=== PATIENT | male | born 1940 | race Caucasian/White ===

== ENCOUNTER 2021-06-09 09:58 | Emergency (ER) | payer MEDICARE, BC ==
--- NOTE | 2021-06-09 11:03 | EDM.PDOC ---
ED HPI GENERAL MEDICAL PROBLEM - General Chief Complaint: Respiratory Problem Stated Complaint: SOB/LOW OXYGEN LEVEL Time Seen by Provider: 06/09/21 11:02 Source of Information: Reports: Patient, Family () History Limitations: Reports: No Limitations - History of Present Illness INITIAL COMMENTS - FREE TEXT/NARRATIVE: 80-year-old male presents to the ED in the accompaniment of his due to increasing dyspnea and productive cough over the last 3 to 4 days. Very minimal nasal congestion. States mild sore throat. He is coughing up some sputum but he swallows it and hasn't had a look at it. He denies ever having COVID-19 and is not vaccinated and does not wish to be vaccinated. He has known COPD and is on oxygen at 2 L/min by nasal cannula at bedtime. This morning his O2 sats were much lower than normal in the low 80s and his increase his oxygen to 3 L/min. He was having difficulty getting dressed and seemed to be generalized increased weakness. He thinks he had some fever and chills a couple days ago. thought he was febrile this morning. Has not had any Tylenol or Motrin. He is prone to pneumonia. Denies any pleuritic chest pain. Appetite is normal. O2 sats in the ED on 2 L/min were 93 to 95%. Onset: Gradual Onset Date: 06/06/21 Duration: Day(s):, Getting Worse Location: Reports: Chest (Increased dyspnea with productive cough with hypoxemia this morning recorded at home.) Quality: Reports: Other Severity: Moderate (Shortness of breath with productive cough for 3 days.) Improves with: Reports: None Worsens with: Reports: Movement Context: Reports: Other. Denies: Activity, Exercise, Lifting, Sick Contact, Trauma Associated Symptoms: Reports: Cough (Chronic COPD.), cough w sputum, Fever/Chills, Malaise (Seem to be weak this morning according to . Difficulty), Shortness of Breath, Weakness (Chronically on exertion.). Denies: Confusion ( Generalized weakness particular noted this morning.), Chest Pain, Diaphoresis (He has not had a look at sputum to get a color.), Headaches (Will fever chills the last few days.), Loss of Appetite, Nausea/Vomiting ( getting up out of bed and getting dressed.), Rash, Seizure, Syncope Treatments [employer]: Reports: Other (see below) (With recent changes to any of his medications.) - Related Data Allergies Allergy/AdvReac Type Severity Reaction Status Date / Time No Known Allergies Allergy Verified 06/09/21 10:08 Home Meds: Home Meds Finasteride 5 mg PO DAILY 06/09/21 [History] Fluticasone/Vilanterol [Breo Ellipta 200-25 MCG Inhalation Kit] 1 puff INH BEDTIME 06/09/21 [History] Incruse 1 puff INH DAILY 06/09/21 [History] Montelukast [Singulair] 5 mg PO ASDIRECTED 06/09/21 [History] Travoprost 2.5 ml OP ASDIRECTED 06/09/21 [History] levoFLOXacin [Levaquin] 500 mg PO DAILY #9 tab 06/09/21 [Rx] Past Medical History HEENT History: Reports: Cataract, Hard of Hearing, Impaired Vision Cardiovascular History: Reports: None Respiratory History: Reports: COPD, Pneumonia, Recurrent Gastrointestinal History: Reports: None Genitourinary History: Reports: Prostate Disorder Musculoskeletal History: Reports: None Neurological History: Reports: Migraines Psychiatric History: Reports: None Endocrine/Metabolic History: Reports: None Hematologic History: Reports: None Immunologic History: Reports: None Oncologic (Cancer) History: Reports: Other (See Below) Other Oncologic History: skin Dermatologic History: Reports: None - Infectious Disease History Infectious Disease History: Reports: Chicken Pox - Past Surgical History HEENT Surgical History: Reports: Cataract Surgery, Oral Surgery Social & Family History - Family History Family Medical History: No Pertinent Family History - Tobacco Use Tobacco Use Status *Q: Former Tobacco User Years of Tobacco use: 57 Packs/Tins Daily: 1 Used Tobacco, but Quit: Yes Month/Year Tobacco Last Used: - Caffeine Use Caffeine Use: Reports: Tea - Recreational Drug Use Recreational Drug Use: No - Living Situation & Occupation Living situation: Reports: Occupation: Retired ED ROS GENERAL - Review of Systems Review Of Systems: See Below Constitutional: Reports: Fever, Chills, Malaise, Weakness, Fatigue. Denies: Diaphoresis, Decreased Appetite, Weight Loss HEENT: Reports: Glasses (Reading only.) Respiratory: Reports: Shortness of Breath, Wheezing, Cough, Sputum. Denies: Pleuritic Chest Pain (Occasional wheezing.), Hemoptysis (Sputum production the last 3 days but he hasn't had a look at the color.) Cardiovascular: Reports: Dyspnea on Exertion. Denies: Chest Pain, Blood Pressure Problem, Claudication, Edema, Lightheadedness, Orthopnea, Palpitations Endocrine: Reports: Fatigue (Chronically) GI/Abdominal: Reports: Constipation (Rare problems with constipation.) : Reports: Other (Has benign prostatic hypertrophy. Rarely gets up at night to void.) Musculoskeletal: Reports: Neck Pain, Back Pain Skin: Reports: No Symptoms, Other (History of skin cancer with removal of tumors anterior chest.) Neurological: Reports: Difficulty Walking (Weak this morning having trouble getting up out of bed and walking and getting dressed.), Weakness. Denies: Confusion, Dizziness, Headache, Numbness, Syncope, Tingling, Tremors, Trouble Speaking, Change in Speech, Gait Disturbance Psychiatric: Reports: No Symptoms Hematologic/Lymphatic: Reports: No Symptoms Immunologic: Reports: No Symptoms ED EXAM, GENERAL - Physical Exam Exam: See Below Exam Limited By: No Limitations General Appearance: Alert, WD/WN, No Apparent Distress, Other (He is not warm to palpation. He has a alex complexion. Temperature is 36.6 degrees. Heart rate was 96 and sinus respiratory was 20 with O2 sats of 95% on 2 L/min by nasal cannula. BP 114/81.) Eye Exam: Bilateral Eye: Normal Inspection (No blepharal pallor or scleral icterus.), PERRL Throat/Mouth: Perioral Cyanosis, Other (Uvula is a little thickened and edematous I believe from coughing. Very minimal pharyngeal erythema with no exudate.) Head: Atraumatic Neck: Normal Inspection, Limited Range of Motion. No: Carotid Bruit, Lymph adenopathy (L) (Hepatus on lateral rotation but he does have full range of motion.), Lymphadenopathy (R) Respiratory/Chest: Rales (Rhonchi right lung base. Fine crackles right lung base as well. He has no history documented of pulmonary fibrosis.), Rhonchi Cardiovascular: Regular Rate, Rhythm, No Edema, No Gallop, No Murmur, No Rub Peripheral Pulses: 2+: Carotid (L), Carotid (R), Posterior Tibial (L), Posterior Tibial (R), Dorsalis Pedis (L), Dorsalis Pedis (R) GI/Abdominal: Normal Bowel Sounds, Soft, Non-Tender, No Organomegaly, No Mass, Pelvis Stable, Other (No surgical scars.) Back Exam: Normal Inspection, Full Range of Motion. No: CVA Tenderness (L), CVA Tenderness (R) Extremities: Normal Inspection, Normal Range of Motion, Non-Tender, No Pedal Edema Neurological: Alert, Oriented, CN II-XII Intact, Normal Cognition, Normal Gait Psychiatric: Normal Affect, Normal Mood Skin Exam: Warm, Dry, Intact, Normal Color, Other (He has 2 surgical incisions 1 below his right clavicle and one left mid chest apparently with resection of skin cancers. He doesn't know if this was malignant melanoma or not.) Course - Vital Signs Last Recorded V/S: Last Vital Signs Temp 36.6 C 06/09/21 10:16 Pulse 96 06/09/21 10:16 Resp 20 06/09/21 10:16 BP 114/81 06/09/21 10:16 Pulse Ox 95 06/09/21 10:16 - Orders/Labs/Meds Orders: Active Orders 24 hr Category Date Time Status BLOOD CULTURE [MREF] Stat Lab 06/09/21 11:30 Received BLOOD CULTURE [MREF] Stat Lab 06/09/21 11:40 Received Blood Culture x2 Reflex Set [OM.PC] Stat Oth 06/09/21 11:11 Ordered Peripheral IV Insertion Adult [OM.PC] Stat Oth 06/09/21 11:17 Ordered Labs: Laboratory Tests 06/09/21 06/09/21 06/09/21 Range/Units 11:28 11:30 11:30 WBC 13.27 H (4.23-9.07) K/mm3 RBC 5.33 (4.63-6.08) M/mm3 Hgb 15.8 (13.7-17.5) gm/dl Hct 47.0 (40.1-51.0) % MCV 88.2 (79.0-92.2) fl MCH 29.6 (25.7-32.2) pg MCHC 33.6 (32.2-35.5) g/dl RDW Std Deviation 46.9 H (35.1-43.9) fL Plt Count 219 (163-337) K/mm3 MPV 9.7 (9.4-12.3) fl Neutrophils % (Manual) 72 H (40-60) % Band Neutrophils % 10 (0-10) % Lymphocytes % (Manual) 10 L (20-40) % Atypical Lymphs % 0 % Monocytes % (Manual) 8 (2-10) % Eosinophils % (Manual) 0 L (0.8-7.0) % Basophils % (Manual) 0 L (0.2-1.2) Platelet Estimate Adequate Plt Morphology Comment Normal RBC Morph Comment Normal PT 10.3 (9.7-12.0) SECONDS INR 0.96 APTT 29.3 (21.7-31.4) SECONDS Sodium (136-145) mEq/L Potassium (3.5-5.1) mEq/L Chloride (98-107) mEq/L Carbon Dioxide (21-32) mEq/L Anion Gap (5-15) BUN (7-18) mg/dL Creatinine (0.7-1.3) mg/dL Est Cr Clr Drug Dosing mL/min Estimated GFR (MDRD) (>60) mL/min BUN/Creatinine Ratio (14-18) Glucose (70-99) mg/dL Calcium (8.5-10.1) mg/dL Magnesium (1.8-2.4) mg/dL Total Bilirubin (0.2-1.0) mg/dL AST (15-37) U/L ALT (16-63) U/L Alkaline Phosphatase (46-116) U/L CK-MB (CK-2) (0-3.6) ng/ml Troponin I (0.00-0.056) ng/mL C-Reactive Protein (<1.0) mg/dL NT-Pro-B Natriuret Pep (0-450) pg/mL Total Protein (6.4-8.2) g/dl Albumin (3.4-5.0) g/dl Globulin gm/dL Albumin/Globulin Ratio (1-2) SARS-CoV-2 RNA (RAMANA) Negative (NEGATIVE) 06/09/21 06/09/21 Range/Units 11:30 11:30 WBC (4.23-9.07) K/mm3 RBC (4.63-6.08) M/mm3 Hgb (13.7-17.5) gm/dl Hct (40.1-51.0) % MCV (79.0-92.2) fl MCH (25.7-32.2) pg MCHC (32.2-35.5) g/dl RDW Std Deviation (35.1-43.9) fL Plt Count (163-337) K/mm3 MPV (9.4-12.3) fl Neutrophils % (Manual) (40-60) % Band Neutrophils % (0-10) % Lymphocytes % (Manual) (20-40) % Atypical Lymphs % % Monocytes % (Manual) (2-10) % Eosinophils % (Manual) (0.8-7.0) % Basophils % (Manual) (0.2-1.2) Platelet Estimate Plt Morphology Comment RBC Morph Comment PT (9.7-12.0) SECONDS INR APTT (21.7-31.4) SECONDS Sodium 140 (136-145) mEq/L Potassium 4.3 (3.5-5.1) mEq/L Chloride 106 (98-107) mEq/L Carbon Dioxide 25 (21-32) mEq/L Anion Gap 13.3 (5-15) BUN 12 (7-18) mg/dL Creatinine 0.9 (0.7-1.3) mg/dL Est Cr Clr Drug Dosing 72.05 mL/min Estimated GFR (MDRD) > 60 (>60) mL/min BUN/Creatinine Ratio 13.3 L (14-18) Glucose 107 H (70-99) mg/dL Calcium 9.2 (8.5-10.1) mg/dL Magnesium 2.1 (1.8-2.4) mg/dL Total Bilirubin 0.5 (0.2-1.0) mg/dL AST 13 L (15-37) U/L ALT 13 L (16-63) U/L Alkaline Phosphatase 100 (46-116) U/L CK-MB (CK-2) < 0.5 (0-3.6) ng/ml Troponin I < 0.017 (0.00-0.056) ng/mL C-Reactive Protein 18.7 H* (<1.0) mg/dL NT-Pro-B Natriuret Pep 289 (0-450) pg/mL Total Protein 6.9 (6.4-8.2) g/dl Albumin 3.0 L (3.4-5.0) g/dl Globulin 3.9 gm/dL Albumin/Globulin Ratio 0.8 L (1-2) SARS-CoV-2 RNA (RAMANA) (NEGATIVE) Meds: Medications Discontinued Medications Generic Name Dose Route Start Last Admin Trade Name Jose PRN Reason Stop Dose Admin Acetaminophen 650 mg 06/09/21 12:09 06/09/21 13:05 Acetaminophen 325 Mg Tab PO 06/09/21 12:10 650 mg ONETIME ONE Administration Levofloxacin/Dextrose 750 mg/ 150 mls @ 100 mls/hr 06/09/21 12:10 06/09/21 13:06 Premix IV 06/09/21 13:39 100 mls/hr ONETIME ONE Administration Sodium Chloride 10 ml 06/09/21 11:17 06/09/21 11:43 Sodium Chloride 0.9% 10 Ml Syringe FLUSH 10 ml ASDIRECTED PRN Administration Keep Vein Open - Radiology Interpretation Free Text/Narrative:: 80-year-old male presents to the ED with a history of fever and chills a few days ago. Increased weakness this morning and hypoxia at home. He usually uses oxygen 2 L/min by nasal cannula at bedtime due to COPD. Usually doesn't need it during the day. His O2 sats are 93 to 95% in the ED on 2 L. He claims he has a productive cough but he hasn't had a look at the sputum. States he swallows it. Appetite has remained fair. Only other major medical problem is BPH. He denies any pleuritic chest pain. No known exposure to COVID-19 and he declines the vaccination. Plan work-up for pneumonia as examination reveals increased rhonchi and fine crackles right lung base. - Re-Assessments/Exams Free Text/Narrative Re-Assessment/Exam: 06/09/21 12:02 potable chest x-ray reveals heart size to be normal. There is mild tortuosity of the thoracic aorta. Slight parenchymal density is seen within the left lung base. Lungs otherwise are clear. Bony structures show nothing acute. Suspect early pneumonia left lower lobe. Plan patient will be started on Levaquin 750 mg IV. On reexamination he is febrile at this time as well. Will be given Tylenol 650 mg p.o. 06/09/21 13:06 White count is elevated at 13.27 with 72% neutrophils and 10% bands cells reported. Hemoglobin is 15.8 with hematocrit of 47.0. PT is 10.3 with an INR of 0.96 and a PTT of 29.3. Sodium is 140 with a potassium of 4.3. Chloride 106 with a bicarb of 25. Anion gap is 13.3. BUN is 12 with a creatinine of 0.9 GFR greater than 60. Glucose is 107. Calcium is 9.2. Magnesium is 2.1. Total bilirubin is 0.5 with an AST of 13 and an ALT of 13. Alkaline phosphatase normal at 100. CK-MB is less than 0.5. Troponin I is less than 0.017. C-reactive protein is elevated at 18.7. BNP is 289. Total protein is 6.9 with an albumin fraction of 3.0 COVID-19 screen is negative. I have strongly entertain the idea of admitting this patient to hospital although he feels he wants to try things at home first. He has a significant left shift with 10% bands cells and a markedly elevated CRP suggesting significant infection. We will give him Levaquin 750 mg IV in the ED and see how he does. 06/09/21 15:10: Patient has completed his IV infusion and feels well. He has no recurrence of fever thus far. He is feeling hungry. He therefore wants to try things at home. Discharged with Levaquin 500 mg tablets once daily for another 9 days every day at noon. Tylenol 650 mg every 6 hours. He will return to the emergency room if condition is not markedly improved in the next 36 to 48 hours. Follow-up with primary care physician in 10 days time or sooner. Departure - Departure Time of Disposition: 14:54 Disposition: Home, Self-Care 01 Condition: Fair Clinical Impression: Pneumonia Qualifiers: Pneumonia type: due to unspecified organism Laterality: left Lung location: lower lobe of lung Qualified Code(s): J18.9 - Pneumonia, unspecified organism COPD (chronic obstructive pulmonary disease) Qualifiers: COPD type: COPD with acute lower respiratory infection Qualified Code(s): J44.0 - Chronic obstructive pulmonary disease with (acute) lower respiratory infection - Discharge Information *PRESCRIPTION DRUG MONITORING PROGRAM REVIEWED*: Not Applicable *COPY OF PRESCRIPTION DRUG MONITORING REPORT IN PATIENT DINO: Not Applicable Prescriptions: levoFLOXacin [Levaquin] 500 mg PO DAILY #9 tab Instructions: Community-Acquired Pneumonia, Adult, [id number] Referrals: Weston Davalos MD [Primary Care Provider] - Forms: ED Department Discharge Additional Instructions: Evaluation in the emergency room today in regards to generalized weakness increased cough and a notable fever in the emergency department. History of not feeling well for the last 3 to 4 days with increased cough and increased need for oxygen this morning. You may well need to continue oxygen at 2 L/min throughout the day and night until feeling better in about 4 to 5 days. Lab tests do reveal an elevated white blood cell count indicating your body is fighting off an infection. Chest x-ray reveals an early pneumonia in the left lower lung although examination suggested more rhonchi and noises in the right lower lobe of your lung. First dose of antibiotic was therefore given in the emergency room Levaquin 750 mg. You will need to continue this in a tablet form 500 mg once daily with noon meal for the next 9 days to clear pneumonia up completely. Continue Tylenol 650 mg every 4-6 hours as needed for relief of fever. Diet as tolerated. Suggest follow-up with personal care physician within the next 2 days if not feeling markedly improved or return to the ED. Otherwise follow-up would be indicated in 10 days time. Sepsis Event Note (ED) - Evaluation Sepsis Screening Result: No Definite Risk - Focused Exam Vital Signs: Vital Signs Temp Pulse Resp BP Pulse Ox 06/09/21 10:16 36.6 C 96 20 114/81 95 - My Orders Last 24 Hours: My Active Orders 06/09/21 11:11 Blood Culture x2 Reflex Set [OM.PC] Stat 06/09/21 11:17 Peripheral IV Insertion Adult [OM.PC] Stat 06/09/21 11:30 BLOOD CULTURE [MREF] Stat 06/09/21 11:40 BLOOD CULTURE [MREF] Stat - Assessment/Plan Last 24 Hours: My Active Orders 06/09/21 11:11 Blood Culture x2 Reflex Set [OM.PC] Stat 06/09/21 11:17 Peripheral IV Insertion Adult [OM.PC] Stat 06/09/21 11:30 BLOOD CULTURE [MREF] Stat 06/09/21 11:40 BLOOD CULTURE [MREF] Stat
[2021-06-09] MEDS ORDERED: Sodium Chloride 0.9% 10 ML Syringe FLUSH PRN (11:17)
--- NOTE | 2021-06-09 11:51 | CR ---
Chest: Portable view of the chest was obtained. Comparison: Prior chest x-ray of 11/20/12. Heart size is normal. Mild tortuosity of the thoracic aorta is seen. Slight parenchymal density is seen within the left lung base. Lungs otherwise are clear. Bony structures show nothing acute. Impression: 1. Difficult to exclude small area of pneumonia within the left lung base. 2. No other acute abnormality is seen. Diagnostic code #3
[2021-06-09] MEDS ORDERED: Acetaminophen 325 MG Tab PO ONE (12:09)
[2021-06-09] MEDS ORDERED: Levofloxacin/Dextrose 5%-Water 750 MG in Premix Bag 1 BAG IV ONE (12:10)
== END 2021-06-09 15:14 | disposition home or self-care (01) ==
LOC: JD.ED 09:58
DX: J18.9 Pneumonia, unspecified organism (principal); J44.0 Chronic obstructive pulmonary disease with (acute) lower respiratory infection; I45.10 Unspecified right bundle-branch block; Z87.891 Personal history of nicotine dependence; Z79.899 Other long term (current) drug therapy; Z20.822 Contact with and (suspected) exposure to COVID-19; R06.02 Shortness of breath
CPT/HCPCS: 36415; 71045; 80053; 82553; 83735; 83880; 84484; 85007; 85027; 85610; 85730; 86140; 87040; 93005; 96365; 96366; 99285; A9270; J1956; U0002; 99284

== ENCOUNTER 2021-08-09 14:29 | Emergency (ER) | payer MEDICARE, BC ==
[2021-08-09] MEDS ORDERED: Sodium Chloride 0.9% 10 ML Syringe FLUSH PRN (15:18)
--- NOTE | 2021-08-09 15:57 | EDM.PDOC ---
ED HPI GENERAL MEDICAL PROBLEM - General Chief Complaint: Respiratory Problem Stated Complaint: POSS COVID Time Seen by Provider: 08/09/21 15:16 Source of Information: Reports: Patient, RN Notes Reviewed History Limitations: Reports: No Limitations - History of Present Illness INITIAL COMMENTS - FREE TEXT/NARRATIVE: Patient is a 81-year-old male presenting to the emergency department with complaints of cough, shortness of breath, weakness, and decreased appetite. Symptoms have been present for approximately 1 week. He has had falls at home, but denies any injuries associated with these. His is ill with similar symptoms. Has a history of COPD and reports that he normally wears oxygen at night. This week, he has been wearing oxygen at 2 L by nasal cannula during the day as well. He denies any derek, chest pain, vomiting, or diarrhea.. Does report body aches. He has not been vaccinated for COVID-19. On arrival to ER, patient's oxygen saturation was 80% on room air. He is currently on 3 L saturating in the low 90s. - Related Data Allergies Allergy/AdvReac Type Severity Reaction Status Date / Time No Known Allergies Allergy Verified 08/09/21 14:43 Home Meds: Home Meds Finasteride 5 mg PO DAILY 06/09/21 [History] Fluticasone/Vilanterol [Breo Ellipta 200-25 MCG Inhalation Kit] 1 puff INH BEDTIME 06/09/21 [History] Incruse 1 puff INH DAILY 06/09/21 [History] Travoprost 2.5 ml OP ASDIRECTED 06/09/21 [History] Albuterol [Proventil HFA] 1 puff INH BID 08/09/21 [History] dexAMETHasone [Dexamethasone] 6 mg PO DAILY #4 tab 08/09/21 [Rx] Past Medical History HEENT History: Reports: Cataract, Hard of Hearing, Impaired Vision Cardiovascular History: Reports: None Respiratory History: Reports: COPD, Pneumonia, Recurrent Gastrointestinal History: Reports: None Genitourinary History: Reports: Prostate Disorder Musculoskeletal History: Reports: None Neurological History: Reports: Migraines Psychiatric History: Reports: None Endocrine/Metabolic History: Reports: None Hematologic History: Reports: None Immunologic History: Reports: None Oncologic (Cancer) History: Reports: Other (See Below) Other Oncologic History: skin Dermatologic History: Reports: None - Infectious Disease History Infectious Disease History: Reports: Chicken Pox - Past Surgical History HEENT Surgical History: Reports: Cataract Surgery, Oral Surgery Social & Family History - Family History Family Medical History: No Pertinent Family History - Tobacco Use Tobacco Use Status *Q: Former Tobacco User Years of Tobacco use: 50 Packs/Tins Daily: 1 Used Tobacco, but Quit: Yes Month/Year Tobacco Last Used: 07/2021 - Caffeine Use Caffeine Use: Reports: None - Recreational Drug Use Recreational Drug Use: No - Living Situation & Occupation Living situation: Reports: Occupation: Retired ED ROS GENERAL - Review of Systems Review Of Systems: Comprehensive ROS is negative, except as noted in HPI. ED EXAM, GENERAL - Physical Exam Exam: See Below Exam Limited By: No Limitations General Appearance: Alert, WD/WN, No Apparent Distress Respiratory/Chest: No Respiratory Distress, No Accessory Muscle Use, Chest Non- Tender, Decreased Breath Sounds (Throughout), Other (Fine crackles bilateral bases) Cardiovascular: Normal Peripheral Pulses, Regular Rate, Rhythm, No Edema, No G allop, No JVD, No Murmur, No Rub GI/Abdominal: Normal Bowel Sounds, Soft, Non-Tender, No Organomegaly, No Distention, No Abnormal Bruit, No Mass Neurological: Alert, Oriented, CN II-XII Intact, Normal Cognition, Normal Gait, Normal Reflexes, No Motor/Sensory Deficits Psychiatric: Normal Affect, Normal Mood Skin Exam: Warm, Dry, Intact, Normal Color, No Rash #1 Interpretation EKG Date: 08/09/21 Time: 15:26 Rhythm: NSR Rate (Beats/Min): 73 [place]: Normal P-Wave: Present QRS: Other (IVCD) ST-T: Normal QT: Normal LA/PQ Interval: short EN Course - Vital Signs Last Recorded V/S: Last Vital Signs Temp 98.4 F 08/09/21 15:16 Pulse 75 08/09/21 15:16 Resp 22 H 08/09/21 15:16 BP 115/56 L 08/09/21 15:16 Pulse Ox 95 08/09/21 15:17 - Orders/Labs/Meds Orders: Active Orders 24 hr Category Date Time Status Peripheral IV Care [RC] . DIRECTED Care 08/09/21 15:19 Active Sodium Chloride 0.9% [Saline Flush] Med 08/09/21 15:18 Active 10 ml FLUSH ASDIRECTED PRN Peripheral IV Insertion Adult [OM.PC] Stat Oth 08/09/21 15:18 Ordered Medication Orders Sodium Chloride (Sodium Chloride 0.9% 10 Ml Syringe) 10 ml FLUSH ASDIRECTED PRN PRN Reason: Keep Vein Open Last Admin: 08/09/21 18:37 Dose: 10 ml Documented by: HERMMIC Labs: Laboratory Tests 08/09/21 08/09/21 08/09/21 Range/Units 14:57 16:23 16:23 WBC 7.81 (4.23-9.07) K/mm3 RBC 5.35 (4.63-6.08) M/mm3 Hgb 15.0 (13.7-17.5) gm/dl Hct 46.8 (40.1-51.0) % MCV 87.5 (79.0-92.2) fl MCH 28.0 (25.7-32.2) pg MCHC 32.1 L (32.2-35.5) g/dl RDW Std Deviation 49.3 H (35.1-43.9) fL Plt Count 197 (163-337) K/mm3 MPV 9.4 (9.4-12.3) fl Neut % (Auto) 79.7 H (34.0-67.9) % Lymph % (Auto) 12.2 L (21.8-53.1) % [place] % (Auto) 7.6 (5.3-12.2) % Eos % (Auto) 0 L (0.8-7.0) Baso % (Auto) 0.1 (0.1-1.2) % Neut # (Auto) 6.23 H (1.78-5.38) K/mm3 Lymph # (Auto) 0.95 L (1.32-3.57) K/mm3 [place] # (Auto) 0.59 (0.30-0.82) K/mm3 Eos # (Auto) 0.00 L (0.04-0.54) K/mm3 Baso # (Auto) 0.01 (0.01-0.08) K/mm3 D-Dimer, Quantitative 1.64 H (0.19-0.50) mg/L Sodium (136-145) mEq/L Potassium (3.5-5.1) mEq/L Chloride (98-107) mEq/L Carbon Dioxide (21-32) mEq/L Anion Gap (5-15) BUN (7-18) mg/dL Creatinine (0.7-1.3) mg/dL Est Cr Clr Drug Dosing mL/min Estimated GFR (MDRD) (>60) mL/min BUN/Creatinine Ratio (14-18) Glucose (70-99) mg/dL Calcium (8.5-10.1) mg/dL Total Bilirubin (0.2-1.0) mg/dL AST (15-37) U/L ALT (16-63) U/L Alkaline Phosphatase (46-116) U/L Troponin I (0.00-0.056) ng/mL C-Reactive Protein (<1.0) mg/dL NT-Pro-B Natriuret Pep (0-450) pg/mL Total Protein (6.4-8.2) g/dl Albumin (3.4-5.0) g/dl Globulin gm/dL Albumin/Globulin Ratio (1-2) SARS-CoV-2 RNA (RAMANA) Positive H (NEGATIVE) 08/09/21 08/09/21 08/09/21 Range/Units 16:23 16:23 19:08 WBC (4.23-9.07) K/mm3 RBC (4.63-6.08) M/mm3 Hgb (13.7-17.5) gm/dl Hct (40.1-51.0) % MCV (79.0-92.2) fl MCH (25.7-32.2) pg MCHC (32.2-35.5) g/dl RDW Std Deviation (35.1-43.9) fL Plt Count (163-337) K/mm3 MPV (9.4-12.3) fl Neut % (Auto) (34.0-67.9) % Lymph % (Auto) (21.8-53.1) % [place] % (Auto) (5.3-12.2) % Eos % (Auto) (0.8-7.0) Baso % (Auto) (0.1-1.2) % Neut # (Auto) (1.78-5.38) K/mm3 Lymph # (Auto) (1.32-3.57) K/mm3 [place] # (Auto) (0.30-0.82) K/mm3 Eos # (Auto) (0.04-0.54) K/mm3 Baso # (Auto) (0.01-0.08) K/mm3 D-Dimer, Quantitative (0.19-0.50) mg/L Sodium 136 (136-145) mEq/L Potassium 3.7 (3.5-5.1) mEq/L Chloride 102 (98-107) mEq/L Carbon Dioxide 24 (21-32) mEq/L Anion Gap 13.7 (5-15) BUN 13 (7-18) mg/dL Creatinine 0.9 (0.7-1.3) mg/dL Est Cr Clr Drug Dosing 73.05 mL/min Estimated GFR (MDRD) > 60 (>60) mL/min BUN/Creatinine Ratio 14.4 (14-18) Glucose 109 H (70-99) mg/dL Calcium 8.4 L (8.5-10.1) mg/dL Total Bilirubin 0.4 (0.2-1.0) mg/dL AST 147 H (15-37) U/L ALT 44 (16-63) U/L Alkaline Phosphatase 75 (46-116) U/L Troponin I 0.459 H* 0.374 H* (0.00-0.056) ng/mL C-Reactive Protein 7.0 H* (<1.0) mg/dL NT-Pro-B Natriuret Pep 554 H (0-450) pg/mL Total Protein 6.3 L (6.4-8.2) g/dl Albumin 2.7 L (3.4-5.0) g/dl Globulin 3.6 gm/dL Albumin/Globulin Ratio 0.8 L (1-2) SARS-CoV-2 RNA (RAMANA) (NEGATIVE) Meds: Medications Generic Name Dose Route Start Last Admin Trade Name Freq PRN Reason Stop Dose Admin Sodium Chloride 10 ml 08/09/21 15:18 08/09/21 18:37 Sodium Chloride 0.9% 10 Ml Syringe FLUSH 10 ml ASDIRECTED PRN Administration Keep Vein Open Discontinued Medications Generic Name Dose Route Start Last Admin Trade Name Freq PRN Reason Stop Dose Admin Dexamethasone 6 mg 08/09/21 16:16 08/09/21 16:33 Dexamethasone 4 Mg Tab PO 08/09/21 16:17 6 mg ONETIME ONE Administration - Re-Assessments/Exams Free Text/Narrative Re-Assessment/Exam: Patient is a 81-year-old male presenting to the emergency department for evaluation of cough, shortness of breath, weakness, and fatigue. Symptoms been present for approximately 1 week. He has history of COPD and normally wears O2 only at night. He reports this last week, he has been wearing it during the day as well. On arrival to ER, he was 80% on room air. Currently saturating in the mid 90s on 4 L by nasal cannula. On exam, he has significantly diminished lung sounds throughout with faint crackles to the bilateral bases. Exam is otherwise unremarkable. I have ordered chest x-ray, Covid test, EKG, and blood work. 08/09/21 16:35 Patient's Covid test is positive. Chest x-ray shows bilateral Covid pneumonia. Hematology is pending. Discussed results discussed with patient. Discussed that ideally, I would like him admitted into an inpatient hospital facility's that he may be treated with remdesivir and steroids, contingent on his kidney function. Unfortunate, we currently do not have any beds available in our facility. Discussed with patient that I do not know where he would end up at this point as it would depend on who has an available bed. Patient does not sound like he would like to be admitted to the hospital, however I will give him some time to think about it while we wait for the lab results. Discussed that if he does go home, he would be discharged on steroid, dexamethasone. He has supplemental O2 at home already. 08/09/21 17:34 Hematology significant for D-dimer elevated at 1.64, AST 147, troponin 0 0.459, CRP 7.0, proBNP 554. Confirmed with patient that he has not experienced chest pain at any point. Given the elevation in D-dimer and troponin, I ordered a CT angiogram of the chest to rule out PE. 08/09/21 19:31 CT angiogram of the chest showed no evidence of pulmonary emboli. There is prominent emphysematous change. Also interstitial change most prominent within both lung bases, worse on the left side. Uncertain if this represents diffuse pulmonary fibrosis or whether findings on left side could represent an early area of pneumonia. Case was discussed with postdoctoral scientist, Dr. Meléndez. EKG was sent to her for review. She indicated that unless his repeat troponin is significantly more elevated, from a cardiac standpoint, he can be discharged home. I have ordered repeat troponin. 08/09/21 19:45 Patient's repeat troponin was lower at 0.374. Results discussed with patient. He does not wish to be admitted for treatment of his Covid. He has supplemental O2 at home and would like to go home with dexamethasone. Discussed with his . She is in agreement and states that she will care for him at home. Discussed that if he is worsening in any way, he should return to the emergency department. They verbalized understanding of this. Discharge instructions as documented. Departure - Departure Time of Disposition: 19:49 Disposition: Home, Self-Care 01 Condition: Fair Clinical Impression: COVID-19 - Discharge Information *PRESCRIPTION DRUG MONITORING PROGRAM REVIEWED*: No *COPY OF PRESCRIPTION DRUG MONITORING REPORT IN PATIENT DINO: No Prescriptions: dexAMETHasone [Dexamethasone] 6 mg PO DAILY #4 tab Instructions: COVID-19 Referrals: PCP,None [Primary Care Provider] - Forms: ED Department Discharge Additional Instructions: You were seen in the emergency department today for evaluation of symptoms of Covid. Work-up included blood work, chest x-ray, EKG of your heart, CT angiogram of your chest, and Covid test. Results of your work-up show that you are Covid positive. There was an elevation in your cardiac enzyme which is likely due to the inflammation from Covid as you have not been experiencing any chest pain. Cardiac enzyme was rechecked and did return lower indicating that you are not experiencing an acute cardiac event. Your case was discussed with postdoctoral scientist on-call at [facility]. She advised that from a cardiac standpoint, it is safe to discharge home. Your chest x-ray and CT of your chest showed that you do have Covid pneumonia which is a viral pneumonia and would not benefit from antibiotic treatment. The option of hospital admission was discussed and you declined. You opted to go home with treatment of steroids and your home oxygen. You been discharged home with a prescription for dexamethasone which is steroid. Take this as prescribed. Monitor your oxygen saturations and titrate your oxygen to keep your saturations between 90 and 93%. If you experience worsening symptoms or you are requiring more than 4 L of oxygen to keep your saturations between 90 and 93%, recommend that you return to the emergency department for reevaluation. Sepsis Event Note (ED) - Focused Exam Vital Signs: Vital Signs Temp Pulse Resp BP Pulse Ox Pulse Ox 08/09/21 15:17 95 08/09/21 15:16 98.4 F 75 22 H 115/56 L 80 L - My Orders Last 24 Hours: My Active Orders 08/09/21 15:18 Sodium Chloride 0.9% [Saline Flush] 10 ml FLUSH ASDIRECTED PRN Peripheral IV Insertion Adult [OM.PC] Stat 08/09/21 15:19 Peripheral IV Care [RC] . DIRECTED - Assessment/Plan Last 24 Hours: My Active Orders 08/09/21 15:18 Sodium Chloride 0.9% [Saline Flush] 10 ml FLUSH ASDIRECTED PRN Peripheral IV Insertion Adult [OM.PC] Stat 08/09/21 15:19 Peripheral IV Care [RC] . DIRECTED
--- NOTE | 2021-08-09 16:15 | CR ---
Chest: Portable view of the chest was obtained. Comparison: Prior chest x-ray of 06/09/21. Patchy increased density is seen within the left mid and lower lung as well as within the medial right lower lung. Findings presumably are due to areas of mild pneumonia. Heart size is normal. Tortuous thoracic aorta is seen. Bony structure show osteopenia. Scattered degenerative change is noted within the spine. Impression: 1. Patchy increased density as described above within both lungs. Findings presumably are due to pneumonia. Diagnostic code #3
[2021-08-09] MEDS ORDERED: Dexamethasone 4 MG Tab PO ONE (16:16)
--- NOTE | 2021-08-09 19:02 | CT ---
CT chest Technique: Multiple axial sections through the chest were obtained. Intravenous contrast was utilized. Study has been performed as a pulmonary angiogram protocol. Comparison: No prior chest CT is available, prior chest x-ray performed earlier on the same day (3:09 PM). Findings: Pulmonary arteries are well opacified. No filling defects are seen to indicate pulmonary embolism. Thoracic aorta shows atherosclerotic change without aneurysm. Several calcified lymph nodes are seen within the mediastinum. No pericardial thickening is seen. Heart is slightly enlarged. Cyst is noted within the right kidney measuring 3.1 cm. Small cyst is noted off the cortex of the left kidney measuring 1.0 cm. Left kidney also shows a nonobstructing calculus measuring 6.6 mm. Diffuse emphysematous changes are seen. Interstitial change is noted within both lung bases which is most prominent on the left side. Uncertain if findings are due to pulmonary fibrosis or represent possible superimposed early area of pneumonia within the left lung base. Bone window settings were reviewed which show mild scattered degenerative change within the spine. No acute osseous abnormality is appreciated. Impression: 1. No findings of pulmonary embolism. 2. Prominent emphysematous change. 3. Interstitial change most prominent within both lung bases, worse on the left side. Uncertain if findings represent diffuse pulmonary fibrosis or whether findings on the left side could represent an early area of pneumonia. Diagnostic code #3
== END 2021-08-09 21:23 | disposition home or self-care (01) ==
LOC: JD.ED 14:29
DX: U07.1 COVID-19 (principal); J44.9 Chronic obstructive pulmonary disease, unspecified; Z79.899 Other long term (current) drug therapy; Z87.891 Personal history of nicotine dependence
CPT/HCPCS: 36415; 71045; 71275; 80053; 83880; 84484; 85025; 85379; 86140; 93005; 99285; J8540; U0002

== ENCOUNTER 2021-08-15 23:26 | Emergency (ER) | payer MEDICARE, BC ==
[2021-08-15] MEDS ORDERED: EPINEPHrine 1:10,000 1 MG/10 ML Syringe ONE ×3 (23:29→23:40)
[2021-08-15] MEDS ORDERED: Atropine 0.1 MG/ML 10 ML Syringe ONE ×2 (23:38→23:42)
--- NOTE | 2021-08-15 23:55 | EDM.PDOC ---
ED HPI GENERAL MEDICAL PROBLEM - General Chief Complaint: CPR in Progress Stated Complaint: [facility] Time Seen by Provider: 08/15/21 23:53 - History of Present Illness INITIAL COMMENTS - FREE TEXT/NARRATIVE: Patient arrived to ED via ambulance EMS called was dispatched [id number] BLS team initiated CPR with "no shock advised" by AED Initial cardiac rhythm on ALS intercept was asystole A supraglottic airway (i-gel) was established Patient received 4 doses of epinephrine and 1 dose of sodium bicarbonate per EMS prehospital Patient had reportedly been last checked on by about 0 He was diagnosed 1 week ago with COVID-19 pneumonia Condition worsened during the week, however he was resistant to returning to hospital - Related Data Allergies Allergy/AdvReac Type Severity Reaction Status Date / Time No Known Allergies Allergy Verified 08/09/21 14:43 Home Meds: Home Meds Finasteride 5 mg PO DAILY 06/09/21 [History] Fluticasone/Vilanterol [Breo Ellipta 200-25 MCG Inhalation Kit] 1 puff INH BEDTIME 06/09/21 [History] Incruse 1 puff INH DAILY 06/09/21 [History] Travoprost 2.5 ml OP ASDIRECTED 06/09/21 [History] Albuterol [Proventil HFA] 1 puff INH BID 08/09/21 [History] dexAMETHasone [Dexamethasone] 6 mg PO DAILY #4 tab 08/09/21 [Rx] Past Medical History HEENT History: Reports: Cataract, Hard of Hearing, Impaired Vision Cardiovascular History: Reports: None Respiratory History: Reports: COPD, Pneumonia, Recurrent Gastrointestinal History: Reports: None Genitourinary History: Reports: Prostate Disorder Musculoskeletal History: Reports: None Neurological History: Reports: Migraines Psychiatric History: Reports: None Endocrine/Metabolic History: Reports: None Hematologic History: Reports: None Immunologic History: Reports: None Oncologic (Cancer) History: Reports: Other (See Below) Other Oncologic History: skin Dermatologic History: Reports: None - Infectious Disease History Infectious Disease History: Reports: Chicken Pox - Past Surgical History HEENT Surgical History: Reports: Cataract Surgery, Oral Surgery Social & Family History - Family History Family Medical History: No Pertinent Family History - Caffeine Use Caffeine Use: Reports: None - Living Situation & Occupation Living situation: Reports: Occupation: Retired ED ROS GENERAL - Review of Systems Review Of Systems: Unable To Obtain Reason Not Obtained: Unresponsive ED EXAM, GENERAL - Physical Exam Exam: See Below Free Text/Narrative:: Constitutional - unresponsive; chest compressions in progress via Andrew device Head - no facial swelling or weakness ENT - no nasal deformity; no epistaxis; supraglottic airway present Neck - no swelling Respiratory - bagged ventilations with no spontaneous respiratory effort Cardiovascular - mechanical chest compressions with Andrew device GI/Abdomen - no mass; no distention Musculoskeletal - no gross swelling or deformity Skin - warm; dry Neurologic - unresponsive Course - Vital Signs Text/Narrative:: Please refer to cardiac arrest record for further details Patient was seen promptly upon ED arrival Resuscitation efforts were continued in accordance with ACLS guidelines Rhythm checks identified PEA with bradycardia Waveform capnography ranged from 9-15, with no significant rise during resuscitation efforts Patient's and daughter were escorted into resuscitation room and apprised of patient's condition They were subsequently accompanied by pastoral care staff No ROSC was achieved during resuscitation Efforts were terminated and patient was pronounced at 2344 Family were informed of patient's expiration Departure - Departure Time of Disposition: 23:44 Disposition: 20 Clinical Impression: COVID-19 virus infection, PEA (Pulseless electrical activity) Acute respiratory failure Qualifiers: Respiratory failure complication: unspecified whether with hypoxia or hypercapnia Qualified Code(s): J96.00 - Acute respiratory failure, unspecified whether with hypoxia or hypercapnia - Discharge Information *PRESCRIPTION DRUG MONITORING PROGRAM REVIEWED*: No *COPY OF PRESCRIPTION DRUG MONITORING REPORT IN PATIENT DINO: Not Applicable
== END 2021-08-16 01:55 | disposition expired ==
LOC: JD.ED 23:26
DX: U07.1 COVID-19 (principal); J96.00 Acute respiratory failure, unspecified whether with hypoxia or hypercapnia; J44.9 Chronic obstructive pulmonary disease, unspecified; Z79.899 Other long term (current) drug therapy
CPT/HCPCS: 36680; 92950; 99285; J0171; J0461